=== PATIENT | male | born 1980 | race Caucasian/White ===

== ENCOUNTER 2018-06-05 00:33 | Emergency (ER) | payer MEDICAID ==
[~2018-06-05] VITALS: Ht 188 cm; Wt 69.0 kg
[~2018-06-05 00:33] MED LIST: CLIN300C85 PO; CYCL-1 PO; IBUP-1986 PO; NAPR-1154 PO
[2018-06-05 02:22] VITALS: BP 106/80
== END 2018-06-05 02:22 | disposition home or self-care (01) ==
LOC: ER 00:33
DX: S00.83XA Contusion of other part of head, initial encounter (principal); F15.10 Other stimulant abuse, uncomplicated; F11.10 Opioid abuse, uncomplicated; Z79.2 Long term (current) use of antibiotics; Z79.899 Other long term (current) drug therapy; W22.8XXA Striking against or struck by other objects, initial encounter; Y93.89 Activity, other specified; Y92.89 Other specified places as the place of occurrence of the external cause; Y99.8 Other external cause status
CPT/HCPCS: 99281

== ENCOUNTER 2019-05-22 22:58 | Emergency (ER) | payer MEDICAID ==
[~2019-05-22] VITALS: Ht 188 cm; Wt 72.0 kg
[~2019-05-22 22:58] MED LIST changes: +CLIN-90 PO; -CLIN300C85 PO
[2019-05-22 23:04] VITALS: BP 113/83
== END 2019-05-23 00:24 | disposition left against medical advice (07) ==
LOC: ER 22:58
DX: K08.89 Other specified disorders of teeth and supporting structures (principal); Z53.21 Procedure and treatment not carried out due to patient leaving prior to being seen by health care provider

== ENCOUNTER 2019-05-26 12:41 | Emergency (ER) | payer MEDICAID ==
[~2019-05-26] VITALS: Ht 188 cm; Wt 65.9 kg
[2019-05-26 12:48] VITALS: BP 153/78
[2019-05-26] MEDS ORDERED: HYDROcodone/acetaminophen 5mg/325mg tablet PO ONE (13:45)
[2019-05-26] MEDS ORDERED: SULF1TAB49 PO (13:59)
== END 2019-05-26 14:26 | disposition home or self-care (01) ==
LOC: ER 12:41
DX: L03.012 Cellulitis of left finger (principal); F15.90 Other stimulant use, unspecified, uncomplicated; F11.90 Opioid use, unspecified, uncomplicated; F17.200 Nicotine dependence, unspecified, uncomplicated
CPT/HCPCS: 99283

== ENCOUNTER 2019-06-11 03:33 | Emergency (ER) | payer MEDICAID, OTHER ==
[~2019-06-11] VITALS: Ht 188 cm; Wt 65.9 kg
[2019-06-11] MEDS ORDERED: CEPH500C5 PO (03:44)
--- NOTE | 2019-06-11 03:44 | NUR ---
PATIENT REFUSED TO HAVE LEFT TOE I & D BY
[2019-06-11] MEDS ORDERED: cephalexin 250mg capsule PO ONE (03:45)
[2019-06-11] MEDS ORDERED: acetaminophen 325mg tablet PO ONE (03:45)
--- NOTE | 2019-06-11 03:57 | NUR ---
PATIENT ASKED ALICIA BARBOSA FOR A NORCO FOR PAIN. PATIENT DID NOT LIKE THE FACT THAT HE WAS NOT GETTING NORCO FOR PAIN. "IT'S REALLY FUCKING BAD: I NEED IT NOW" PATIENT ASKED ME TO AGAIN ASKED DR APONTE FOR SOMETHING MORE THAN JUST TYLENOL.
--- NOTE | 2019-06-11 04:03 | NUR ---
PATIENT DOES NOT WANT TO WAKE HIS FRIENDS UP FOR A RIDE HOME
--- NOTE | 2019-06-11 04:04 | NUR ---
DR WHITEHEAD STATED THAT HE IS NOT GIVING PATIENT ANY NARCOTICS. DR WHITEHEAD DOES NOT WANT TO PROVIDE RIDE HOME BECAUSE PATIENT DOES NOT WANT TO WAKE HIS FRIENDS
--- NOTE | 2019-06-11 04:10 | NUR ---
WENT INTO ROOM 4; PATIENT IS NOT IN ROOM 4
--- NOTE | 2019-06-11 04:20 | NUR ---
STILL IN ROOM 4 WAITING FOR PATIENT. PATIENT AMBULATED WNL FROM BATHROOM TO ROOM. PROVIDED WALKING SHOE PER
--- NOTE | 2019-06-11 04:30 | NUR ---
PATIENT LEFT WITHOUT SIGNING DISCHARGE PAPERS. PATIENT VERY UPSET THAT HE DID NOT RECEIVE A NORCO AND A CAB. DR WHITEHEAD STATED NUMEROUS TIMES THAT HE DID NOT WANT TO PROVIDE A NORCO OR A CAB NEITHER APEARED TO BE JUSTIFIED. ED MD DISCUSSED ABUSE OF RESOURCES WITH PATIENT AND THE PURPOSE OF THE ER. PATIENT RESPONDED WITH "YOU SHOULD BE HONORED THAT I CAME HERE". PATIENT REFUSED TO HAVE WOUND INCISED AND DRAINED. PATIENT WAS GIVEN SOCKS WELL A POST OP SHOE PER MD AND DIRECTOR OF UNDERGRADUATE ADMISSIONS MARCIE. PATIENT AMBULATED TO BATHROOM AND OUT OF ER WITH HIS BELONGINGS, GAIT WNL AND VERY STEADY ON FEET.
[2019-06-11 05:05] VITALS: BP 128/67
== END 2019-06-11 04:30 | disposition home or self-care (01) ==
LOC: ER 03:33
DX: M79.675 Pain in left toe(s) (principal); F15.90 Other stimulant use, unspecified, uncomplicated; F11.90 Opioid use, unspecified, uncomplicated; Z79.2 Long term (current) use of antibiotics; Z79.899 Other long term (current) drug therapy
CPT/HCPCS: 99283

== ENCOUNTER 2020-04-04 02:20 | Emergency (ER) | payer MEDICAID ==
[~2020-04-04] VITALS: Ht 188 cm; Wt 68.0 kg
[~2020-04-04 02:20] MED LIST changes: +CEPH500C5 PO; -CLIN-90 PO; +CLIN-97 PO
[2020-04-04 02:23] VITALS: BP 128/87
[2020-04-04] MEDS ORDERED: ketorolac trometh inj. 60 MG/2 ML VIAL IM ONE (02:40)
[2020-04-04] MEDS ORDERED: AMOX-422 PO (02:44)
[2020-04-04] MEDS ORDERED: amox tr/potassium clavulanate 875/125mg TAB PO ONE (02:45)
[2020-04-04] MEDS ORDERED: HYDROcodone/acetaminophen 5mg/325mg tablet PO ONE (02:45)
== END 2020-04-04 03:52 | disposition home or self-care (01) ==
LOC: ER 02:20
DX: K04.7 Periapical abscess without sinus (principal); K08.89 Other specified disorders of teeth and supporting structures; F15.90 Other stimulant use, unspecified, uncomplicated; F11.90 Opioid use, unspecified, uncomplicated; Z72.89 Other problems related to lifestyle; Z79.899 Other long term (current) drug therapy
CPT/HCPCS: 96372; 99283; J1885

== ENCOUNTER 2024-09-21 03:16 | Emergency (ER) | payer MEDICAID ==
[~2024-09-21] VITALS: Ht 188 cm; Wt 49.7 kg
[~2024-09-21 03:16] MED LIST changes: -CEPH500C5 PO
[2024-09-21 03:19] VITALS: BP 162/75; PULSE 103; RESP 15; O2SAT 95
[2024-09-21 03:45] VITALS: TEMP 96.8
[2024-09-21] MEDS: naproxen 500mg tablet PO ONE (03:47)
[2024-09-25] MEDS ORDERED: AMOX500C2 PO (21:25)
== END 2024-09-21 03:54 | disposition home or self-care (01) ==
LOC: ER 03:18
DX: S90.821A Blister (nonthermal), right foot, initial encounter (principal); S90.822A Blister (nonthermal), left foot, initial encounter; F15.90 Other stimulant use, unspecified, uncomplicated; F11.90 Opioid use, unspecified, uncomplicated; X58.XXXA Exposure to other specified factors, initial encounter; Y93.01 Activity, walking, marching and hiking; Y92.89 Other specified places as the place of occurrence of the external cause; Y99.8 Other external cause status
CPT/HCPCS: 99282

== ENCOUNTER 2025-01-30 23:29 | Emergency (ER) | payer MEDICAID ==
[~2025-01-30] VITALS: Ht 188 cm; Wt 68.2 kg
[2025-01-30 23:31] VITALS: TEMP 98.1
--- NOTE | 2025-01-31 00:03 | Physician Documentation ---
History of Present Illness ~ Chief Complaint: Toe pain Stated Complaint: FOOT PAIN Time Seen by : 00:02 Primary Medical Doctor: None HPI Patient presents to the emergency room for evaluation of right great toe pain. Patient is homeless and walks a lot and he attributes his toe pain to this. No fevers Tetanus witin 5 years: Yes Medication Reconciliation Allergies: Coded Allergies: No Known Allergies (Unverified , 09/25/24) Scheduled Clindamycin HCL* (Clindamycin HCL*), 1 CAP PO Q6H Ibuprofen (Ibuprofen), 1 TAB PO Q8H Naproxen (Naprosyn), 1 TAB PO Q12H Scheduled PRN Cyclobenzaprine* (Cyclobenzaprine*), 1 TABLET PO Q8H PRN for muscle spasms Past Medical History Past Medical History: No Pertinent History Past Surgical History: noncontributory Alcohol Use: Occasionally Drug Use: methamphetamine, heroin Lives In: Homeless Review of Systems ROS All review of systems negative except as per HPI Physical Exam Vital Signs: Temperature: 98.1, Heart Rate: 104, Respiratory Rate: 16, BP: 106/72, Pulse Oximetry: 97, Weight: 68.180 Oxygen Flow Rate: 0 Physical Exam General: Patient is awake, alert, oriented x4 in no acute distress Head: Normocephalic and atraumatic. Eyes: Conjunctival normal. EOMI. PERRL. ENT: Mucous membranes moist. Neck: Supple, trachea is midline. Chest: Clear to auscultation bilaterally without rales, rhonchi, or wheezes. There is no accessory muscle use or retractions. Cardiac: RRR without murmurs, gallops, or rubs. Extremities: Erythema noted around patient's right great toe suspicious for early cellulitis Progress Results/Orders Results/Orders Orders - AMADOU TAN MD Cephalexin Capsule (Keflex Capsule) (01/31/25 00:20) Vital Signs 01/30/25 23:31 Temp 98.1 Pulse 104 Resp 16 B/P (MAP) 106/72 Pulse Ox 97 O2 Flow Rate 0 Medical Decision Making Findings Patient presents to the emergency room with toe pain. Differentials include but are not limited to ingrown toenail, cellulitis, abscess, fungus. Patient's physical exam is reassuring he had not feel he requires any labs or imaging. We will start with antibiotics and I will add antifungal as well. Departure Disposition: HOME / SELF CARE / HOMELESS Impression: Primary Impression: Toe swelling Condition: Stable Discharge Instructions: Cellulitis, Adult, [id number] Referrals: NO PRIMARY CARE PROVIDER (PCP) Prescriptions Ketoconazole (Ketoconazole) 10 Gm Powder 1 APPLIC TOP BID, #1 BOTTLE Prov: AMADOU TAN MD 01/31/25 Cephalexin*Monohydrate* (Keflex*) 500 Mg Capsule 1 CAP PO Q12H for 10 Days, #20 CAP Prov: AMADOU TAN MD 01/31/25 Education Educated: Patient Educated regarding: diagnosis, treatment, need for follow up Signature Scribe Signature: No scribe Attestation: The note accurately reflects work and decisions made by me.Amadou Tan MD 01/31/25 00:24 AMADOU TAN MD Jan 31, 2025 00:03
[2025-01-31] MEDS ORDERED: CEPH-585 PO (00:24)
[2025-01-31] MEDS ORDERED: KETO10PO3 TOP (00:24)
[2025-01-31 01:00] VITALS: BP 124/80; PULSE 70; RESP 16; O2SAT 99
== END 2025-01-31 01:43 | disposition home or self-care (01) ==
LOC: ER 23:30
DX: M79.89 Other specified soft tissue disorders (principal); F15.90 Other stimulant use, unspecified, uncomplicated; F11.90 Opioid use, unspecified, uncomplicated
CPT/HCPCS: 99283